=== PATIENT | male | born 1955 | race Two or more races ===

== ENCOUNTER 2019-08-07 11:10 | Inpatient (IN) | payer MEDICAID ==
[~2019-08-07] VITALS: Ht 165.1 cm; Wt 68.0 kg
--- NOTE | 2019-08-07 11:14 | NUR ---
ED Nurse Note: Pt brought in by RA 826 from home due to abd pain 5/10 and diarrhea x 1 days. Pt states there was a lot of blood in his stools. AAO x4 and ambulatory with non labored breathing.
[2019-08-07 11:18] VITALS: BP 151/93
[2019-08-07] MEDS ORDERED: Omnipaque-300 100ml vial INJ PRN (11:30)
--- NOTE | 2019-08-07 11:30 | NUR ---
ED Nurse Note: Collected blood specimen then sent.
--- NOTE | 2019-08-07 11:33 | Emergency Room Report ---
History of Present Illness General Chief Complaint: Abdominal Pain Source: Patient Present Illness HPI Patient presents with complaints of lower abdominal cramping reports that this morning he had 2 episodes of bright red blood per rectum Denies any chest pain denies any shortness of breath patient does report alcohol intake regularly Denies any dysuria frequency Denies any recent fall or trauma patient has had previous abdominal hernia surgery Denies any diarrhea or constipation Allergies: Coded Allergies: No Known Allergies (Unverified , 08/07/19) Patient History Past Medical History: see triage record Reviewed Nursing Documentation: PMH: Agreed; PSxH: Agreed Nursing Documentation-PMH Hx Diabetes: Yes Review of Systems All Other Systems: negative except mentioned in HPI Physical Exam Vital Signs Date Time Temp Pulse Resp B/P (MAP) Pulse Ox O2 Delivery O2 Flow Rate FiO2 08/07/19 11:04 98.4 70 18 130/95 (107) 100 Room Air Sp02 EP Interpretation: reviewed, normal General Appearance: well appearing, no apparent distress Head: normocephalic, atraumatic Eyes: bilateral eye PERRL, bilateral eye EOMI ENT: hearing grossly normal, normal pharynx, TMs + canals normal, uvula midline Neck: full range of motion, supple, no meningismus, no bony tend Respiratory: lungs clear, normal breath sounds, no rhonchi, no respiratory distress, no retraction, no accessory muscle use Cardiovascular #1: normal peripheral pulses, regular rate, rhythm, no edema, no gallop, no JVD, no murmur Gastrointestinal: normal bowel sounds, non tender - On palpation however patient points to bilateral lower abdomen for subjective discomfort, soft, no mass, no organomegaly, non-distended, no guarding, no hernia, no pulsatile mass , no rebound Rectal: other - Bright red blood appreciated no obvious external or visible hemorrhoids Genitourinary: no CVA tenderness Musculoskeletal: normal inspection Neurologic: oriented x3, responsive, motor bike mechanic III-XII nml as tested, motor strength/ tone normal, sensory intact Psychiatric: mood/affect normal Skin: no rash Lymphatic: normal inspection, no adenopathy Medical Decision Making Diagnostic Impression: Primary Impression: GI bleeding ER Course Given the patient's history and presentation multiple differentials and consideration including but not limited to external hemorrhoids, fissures, GI bleed Patient's white blood cell count is lower than normal Patient had another episode of large bright red blood stool Rectal exam does not show any obvious external hemorrhoids or fissures and patient will require further inpatient care GI specialty was also contacted Labs Test 08/07/19 11:30 08/07/19 17:30 08/08/19 04:45 White Blood Count 5.4 K/UL (4.8-10.8) 4.6 K/UL (4.8-10.8) 4.7 K/UL (4.8-10.8) Red Blood Count 4.24 M/UL (4.70-6.10) 3.57 M/UL (4.70-6.10) 3.17 M/UL (4.70-6.10) Hemoglobin 12.8 G/DL (14.2-18.0) 10.9 G/DL (14.2-18.0) 9.6 G/DL (14.2-18.0) Hematocrit 38.8 % (42.0-52.0) 32.7 % (42.0-52.0) 29.0 % (42.0-52.0) Mean Corpuscular Volume 92 FL (80-99) 92 FL (80-99) 91 FL (80-99) Mean Corpuscular Hemoglobin 30.3 PG (27.0-31.0) 30.6 PG (27.0-31.0) 30.4 PG (27.0-31.0) Mean Corpuscular Hemoglobin Concent 33.0 G/DL (32.0-36.0) 33.5 G/DL (32.0-36.0) 33.2 G/DL (32.0-36.0) Red Cell Distribution Width 14.6 % (11.6-14.8) 13.8 % (11.6-14.8) 14.8 % (11.6-14.8) Platelet Count 329 K/UL (150-450) 295 K/UL (150-450) 305 K/UL (150-450) Mean Platelet Volume 5.0 FL (6.5-10.1) 5.1 FL (6.5-10.1) 5.2 FL (6.5-10.1) Neutrophils (%) (Auto) 67.1 % (45.0-75.0) 68.6 % (45.0-75.0) 55.7 % (45.0-75.0) Lymphocytes (%) (Auto) 16.4 % (20.0-45.0) 15.0 % (20.0-45.0) 25.1 % (20.0-45.0) Monocytes (%) (Auto) 9.3 % (1.0-10.0) 8.6 % (1.0-10.0) 10.0 % (1.0-10.0) Eosinophils (%) (Auto) 5.8 % (0.0-3.0) 6.2 % (0.0-3.0) 7.8 % (0.0-3.0) Basophils (%) (Auto) 1.5 % (0.0-2.0) 1.6 % (0.0-2.0) 1.4 % (0.0-2.0) Urine Color Michaela Urine Appearance Clear Urine pH 6 (4.5-8.0) Urine Specific [place] 1.020 (1.005-1.035) Urine Protein 2+ (NEGATIVE) Urine Glucose (UA) Negative (NEGATIVE) Urine Ketones 1+ (NEGATIVE) Urine Blood Negative (NEGATIVE) Urine Nitrite Negative (NEGATIVE) Urine Bilirubin Negative (NEGATIVE) Urine Ictotest Negative (NEGATIVE) Urine Urobilinogen 1 MG/DL (0.0-1.0) Urine Leukocyte Esterase 1+ (NEGATIVE) Urine RBC 0 /HPF (0 - 0) Urine WBC 0-2 /HPF (0 - 0) Urine Squamous Epithelial Cells None /LPF (NONE/OCC) Urine Bacteria None /HPF (NONE) Sodium Level 138 MMOL/L (136-145) 140 MMOL/L (136-145) Potassium Level 4.1 MMOL/L (3.5-5.1) 4.2 MMOL/L (3.5-5.1) Chloride Level 105 MMOL/L (98-107) 108 MMOL/L (98-107) Carbon Dioxide Level 25 MMOL/L (21-32) 25 MMOL/L (21-32) Anion Gap 8 mmol/L (5-15) 7 mmol/L (5-15) Blood Urea Nitrogen 15 mg/dL (7-18) 10 mg/dL (7-18) Creatinine 0.8 MG/DL (0.55-1.30) 0.7 MG/DL (0.55-1.30) Estimat Glomerular Filtration Rate > 60 mL/min (>60) > 60 mL/min (>60) Glucose Level 137 MG/DL (74-106) 119 MG/DL (74-106) Calcium Level 8.8 MG/DL (8.5-10.1) 8.3 MG/DL (8.5-10.1) Total Bilirubin 0.3 MG/DL (0.2-1.0) 0.3 MG/DL (0.2-1.0) Aspartate Amino Transf (AST/SGOT) 52 U/L (15-37) 36 U/L (15-37) Alanine Aminotransferase (ALT/SGPT) 108 U/L (12-78) 88 U/L (12-78) Alkaline Phosphatase 66 U/L (46-116) 47 U/L (46-116) Total Protein 7.3 G/DL (6.4-8.2) 6.1 G/DL (6.4-8.2) Albumin 3.6 G/DL (3.4-5.0) 3.1 G/DL (3.4-5.0) Globulin 3.7 g/dL 3.0 g/dL Albumin/Globulin Ratio 1.0 (1.0-2.7) 1.0 (1.0-2.7) Lipase 192 U/L (73-393) Rhythm Strip Diag. Results EP Interpretation: yes Rate: 77 Rhythm: NSR, no PVC's, no ectopy CT/MRI/US Diagnostic Results CT/MRI/US Diagnostic Results : Impression CT abdomen pelvisIMPRESSION: 1. Diffuse colonic diverticulosis. Mild wall thickening and adjacent stranding in the sigmoid colon may suggest a low-grade diverticulitis. No adjacent free air or fluid collections. 2. Mild urinary bladder wall thickening with perivesical stranding, which may be reactive inflammation versus a cystitis. Recommend correlation with urinalysis. 3. Fat-containing umbilical and paraumbilical herniations. 4. Scattered simple-appearing renal cortical cysts, largest measuring 2. 5 cm in the left lower pole and 2.3 cm in the right lower pole. Last Vital Signs Date Time Temp Pulse Resp B/P (MAP) Pulse Ox O2 Delivery O2 Flow Rate FiO2 08/07/19 11:18 98.4 74 20 151/93 96 Room Air Status: improved Disposition: ADMITTED INPATIENT Condition: Serious Jose Raul Richter DO Aug 07, 2019 11:33
[2019-08-07 11:43] LABS: BASOPHILS % (AUTO) 1.5 % (0.0-2.0); EOSINOPHILS % (AUTO) 5.8 % (0.0-3.0); HEMATOCRIT 38.8 % (42.0-52.0); HEMOGLOBIN 12.8 G/DL (14.2-18.0); LYMPHOCYTES % (AUTO) 16.4 % (20.0-45.0); MEAN CORPUSCULAR VOLUME 92 FL (80-99); MONOCYTES % (AUTO) 9.3 % (1.0-10.0); NEUTROPHILS % (AUTO) 67.1 % (45.0-75.0); PLATELET COUNT 329 K/UL (150-450); RED BLOOD COUNT 4.24 M/UL (4.70-6.10); RED CELL DISTRIBUTION WIDTH 14.6 % (11.6-14.8); WHITE BLOOD COUNT 5.4 K/UL (4.8-10.8)
[2019-08-07 11:46] LABS: APPEARANCE,URINE CLEAR; BILIRUBIN, URINE NEGATIVE (NEGATIVE); COLOR,URINE AMBER; GLUCOSE, URINE (UA) NEGATIVE (NEGATIVE); KETONES,URINE 1+ (NEGATIVE); LEUKOCYTE ESTERASE ,URINE 1+ (NEGATIVE); NITRITE,URINE NEGATIVE (NEGATIVE); PH,URINE 6 (4.5-8.0); PROTEIN,URINE 2+ (NEGATIVE); UROBILINOGEN,URINE 1 MG/DL (0.0-1.0)
[2019-08-07 11:51] LABS: ANION GAP 8 mmol/L (5-15); BLOOD UREA NITROGEN 15 mg/dL (7-18); CALCIUM 8.8 MG/DL (8.5-10.1); CARBON DIOXIDE 25 MMOL/L (21-32); CHLORIDE 105 MMOL/L (98-107); CREATININE 0.8 MG/DL (0.55-1.30); POTASSIUM 4.1 MMOL/L (3.5-5.1); SODIUM 138 MMOL/L (136-145)
[2019-08-07 11:55] LABS: ALANINE AMINOTRANSFERASE 108 U/L (12-78); ALBUMIN 3.6 G/DL (3.4-5.0); ALKALINE PHOSPHATASE 66 U/L (46-116); ASPARTATE AMINO TRANSFERASE 52 U/L (15-37); BILIRUBIN,TOTAL 0.3 MG/DL (0.2-1.0)
[2019-08-07] MEDS ORDERED: htn med (13:14)
[2019-08-07] MEDS ORDERED: ASPIR 8181 MG ORAL (13:14)
[2019-08-07] MEDS ORDERED: METFORMIN HCL1000 M1 ORAL (13:14)
--- NOTE | 2019-08-07 13:14 | NUR ---
ED Nurse Note: per pt, " I do not know the name of hypertension med." pt does not have any family member to look for bottle of meds.
[2019-08-07 13:23] VITALS: BP 150/90
--- NOTE | 2019-08-07 13:23 | Diagnostic Imaging Report ---
EXAM: CT Abdomen and Pelvis With Intravenous Contrast CLINICAL HISTORY: PAIN TECHNIQUE: Axial computed tomography images of the abdomen and pelvis with intravenous contrast. CTDI is 16.90 mGy and DLP is 981.30 mGy-cm. One or more of the following dose reduction techniques were used: automated exposure control, adjustment of the mA and or kV according to patient size, use of iterative reconstruction technique. COMPARISON: No relevant prior studies available. FINDINGS: Lung bases: Unremarkable. No consolidation. No effusions. ABDOMEN: Liver: Unremarkable. No suspicious parenchymal lesions Gallbladder and bile ducts: Unremarkable. No calcified stones. No ductal dilation. Pancreas: Unremarkable. No mass. No ductal dilation. Spleen: Unremarkable. No splenomegaly. Adrenals: Unremarkable. No mass. Kidneys and ureters: Scattered simple-appearing renal cortical cysts, largest measuring 2.5 cm in the left lower pole and 2.3 cm in the right lower pole. The kidneys otherwise appear unremarkable. No hydronephrosis or hydroureter. Stomach and bowel: Diffuse colonic diverticulosis. Mild wall thickening and adjacent stranding in the sigmoid colon may suggest a low- grade diverticulitis. No abnormally distended loops of small bowel. GE junction and stomach appear unremarkable. PELVIS: Appendix: No findings to suggest acute appendicitis. Bladder: Mild urinary bladder wall thickening with perivesical stranding, which may be reactive inflammation versus a cystitis. Reproductive: Unremarkable as visualized. ABDOMEN and PELVIS: Intraperitoneal space: Unremarkable. No free air. No significant fluid collection. Bones joints: No acute fracture. No dislocation. Soft tissues: Fat-containing umbilical and paraumbilical herniations. Vasculature: Unremarkable. No abdominal aortic aneurysm. Lymph nodes: Unremarkable. No enlarged lymph nodes. IMPRESSION: 1. Diffuse colonic diverticulosis. Mild wall thickening and adjacent stranding in the sigmoid colon may suggest a low-grade diverticulitis. No adjacent free air or fluid collections. 2. Mild urinary bladder wall thickening with perivesical stranding, which may be reactive inflammation versus a cystitis. Recommend correlation with urinalysis. 3. Fat-containing umbilical and paraumbilical herniations. 4. Scattered simple-appearing renal cortical cysts, largest measuring 2. 5 cm in the left lower pole and 2.3 cm in the right lower pole.
--- NOTE | 2019-08-07 13:33 | NUR ---
Report given to Edilson Agustin RN. Pt to be transferred to Addendum: 08/07/19 at 1334 by [facility] ED Nurse Note: Report given to Edilson Agustin RN. Pt to be transferred to room [facility] on wheelchair per protocol.
--- NOTE | 2019-08-07 13:53 | NUR ---
NURSE NOTES: RECEIVED PATIENT A/A/OX4, YI SPEAKING. PERSONAL BELONGINGS NOTED. IV HEPLOCK PATENT AND INTACT. NO VISIBLE BLEEDING OCCUR FROM RECTUM. CALLED DR MARC/[facility] OFFICE NUMBER. AWAITS FOR A CALLBACK. BED IS IN THE LOWEST POSITION. SIDERAILS ARE UP X3. CALL LIGHT IS WITHIN REACH. WILL CONT TO MONITOR. Addendum: 08/07/19 at 1741 by RIAZ MARTIN LVN ADMISSION PROFILE RENDERED.
[2019-08-07 13:54] VITALS: BP 153/93
--- NOTE | 2019-08-07 15:44 | NUR ---
NURSE NOTES: HAD LEFT 2ND VOICEMESSAGE TO DR MARC'S OFFICE RE: ADMITTING ORDERS. AWAITING FOR CALL BACK. INFORMED JASMEET LEON. WILL CONT TO MONITOR.
[2019-08-07 16:08] VITALS: BP 127/76
--- NOTE | 2019-08-07 16:53 | NUR ---
NURSE NOTES: stated that he had 4 bm with blood. instructed not to flush next time when he moves his bm. will cont to monitor. Addendum: 08/07/19 at 1740 by RIAZ MARTIN LVN PATIENT HAD ANOTHER 2 MORE DIARRHEA, BLOOD PRESENT. DR MARC MADE AWARE.
--- NOTE | 2019-08-07 17:40 | NUR ---
NURSE NOTES: OBTAINED ADMISSION ORDERS AND CARRIED OUT.
[2019-08-07 17:53] LABS: BASOPHILS % (AUTO) 1.6 % (0.0-2.0); EOSINOPHILS % (AUTO) 6.2 % (0.0-3.0); HEMATOCRIT 32.7 % (42.0-52.0); HEMOGLOBIN 10.9 G/DL (14.2-18.0); MEAN CORPUSCULAR VOLUME 92 FL (80-99); MONOCYTES % (AUTO) 8.6 % (1.0-10.0); NEUTROPHILS % (AUTO) 68.6 % (45.0-75.0); PLATELET COUNT 295 K/UL (150-450); RED BLOOD COUNT 3.57 M/UL (4.70-6.10); RED CELL DISTRIBUTION WIDTH 13.8 % (11.6-14.8); WHITE BLOOD COUNT 4.6 K/UL (4.8-10.8)
--- NOTE | 2019-08-07 19:00 | NUR ---
NURSE NOTES: relayed cbc result to Dr. Trujillo. awaits for a callback. endorsed to YUNIEL Milton
--- NOTE | 2019-08-07 19:14 | NUR ---
HAND-OFF: Report given to Yoan Rankin
--- NOTE | 2019-08-07 19:53 | NUR ---
NURSE NOTES: Patient in bed awake and oriented. VSS. No SOB noted. IV site intact and tolerating well. No pain noted at this time. in stable condition. Call light within reach.
[2019-08-07 20:00] VITALS: BP 126/71
[2019-08-07] MEDS ORDERED: Sorbitol Solution UD 30ml ORAL SCH (20:30)
[2019-08-07] MEDS: NovoLOG Insulin Flexpen SUBQ SCH (21:13)
--- NOTE | 2019-08-07 21:15 | History and Physical Report ---
DATE OF ADMISSION: 08/07/2019 REASON FOR ADMISSION: Rectal bleeding. HISTORY OF PRESENT ILLNESS: This is a 64-year-old male. He has a distant history of gastric ulcer with bleeding over 25 years ago and has not had any recurrence since. He woke up this morning with bright red blood per rectum during a bowel movement and has had several subsequent episodes. He notes no abdominal pain. He has not had any recent change in diet. PAST MEDICAL HISTORY: Hypertension, type 2 diabetes mellitus. ALLERGIES: None. MEDICATIONS: Reviewed. SOCIAL HISTORY: Denies smoking, alcohol, or substance abuse. FAMILY HISTORY: Noncontributory. REVIEW OF SYSTEMS: A 10-point review of systems was otherwise unremarkable. PHYSICAL EXAMINATION: VITAL SIGNS: Blood pressure 150/86, pulse 78, respiratory rate 18, and afebrile. NECK: Supple. LUNGS: Clear. CARDIAC: Regular. Normal S1, S2. ABDOMEN: Soft. No tenderness, rebound, or masses. EXTREMITIES: No edema. NEUROLOGIC: Nonfocal. LABORATORY DATA: Hemoglobin was 12. Repeat hemoglobin pending. No evidence of lactic acidosis. IMPRESSION AND PLAN: Rectal bleeding. Possible etiologies include diverticulosis. Recommend liquid diet. GI consult. Serial hemoglobin. Hold anti-platelet therapy. Insulin coverage by sliding scale. IV fluid hydration. Elder Trujlilo M.D. DR: HALI JOB#: [id number] CC:
[2019-08-08] VITALS: BP 112/81
--- NOTE | 2019-08-08 02:43 | NUR ---
NURSE NOTES: Patient given sorbitol. BM x3 with. BM was bloody and liquid consistency. No abdominal pain. VSS.
[2019-08-08 04:00] VITALS: BP 129/83
[2019-08-08] MEDS: NovoLOG Insulin Flexpen SUBQ SCH ×4 (06:26→22:20)
[2019-08-08 06:30] LABS: BASOPHILS % (AUTO) 1.4 % (0.0-2.0); EOSINOPHILS % (AUTO) 7.8 % (0.0-3.0); HEMOGLOBIN 9.6 G/DL (14.2-18.0); LYMPHOCYTES % (AUTO) 25.1 % (20.0-45.0); MEAN CORPUSCULAR VOLUME 91 FL (80-99); NEUTROPHILS % (AUTO) 55.7 % (45.0-75.0); PLATELET COUNT 305 K/UL (150-450); RED BLOOD COUNT 3.17 M/UL (4.70-6.10); RED CELL DISTRIBUTION WIDTH 14.8 % (11.6-14.8); WHITE BLOOD COUNT 4.7 K/UL (4.8-10.8)
[2019-08-08 06:44] LABS: ALANINE AMINOTRANSFERASE 88 U/L (12-78); ALBUMIN 3.1 G/DL (3.4-5.0); ALKALINE PHOSPHATASE 47 U/L (46-116); ANION GAP 7 mmol/L (5-15); ASPARTATE AMINO TRANSFERASE 36 U/L (15-37); BILIRUBIN,TOTAL 0.3 MG/DL (0.2-1.0); BLOOD UREA NITROGEN 10 mg/dL (7-18); CALCIUM 8.3 MG/DL (8.5-10.1); CARBON DIOXIDE 25 MMOL/L (21-32); CHLORIDE 108 MMOL/L (98-107); CREATININE 0.7 MG/DL (0.55-1.30); POTASSIUM 4.2 MMOL/L (3.5-5.1); SODIUM 140 MMOL/L (136-145)
--- NOTE | 2019-08-08 07:30 | NUR ---
NURSE NOTES: RECEIVED PATIENT A/A/OX4, CENTRAL AFRICAN SPEAKING. AMBULATES WITH NO ACUTE DISTRESS OR DISCOMFORT NOTED. IV ACCESS PATENT AND INTACT. NO BM OF THIS TIME. TOLERATING BREAKFAST WELL. BED IS IN THE LOWEST POSITION. SIDERAILS ARE UP X3. CALL LIGHT IS WITHIN REACH. WILL CONT TO MONITOR.
[2019-08-08 08:00] VITALS: BP 117/70
--- NOTE | 2019-08-08 09:24 | NUR ---
CASE MANAGEMENT: INITIAL REVIEW 64 YO M PRESENTED TO OUR ED FROM HOME CC: ABD PAIN. BRIGHT RED BLOOD PER RECTUM X2 PMHx: HTN SI:GI BLEED T 98.4 HR 70 RR 18 B/P 130/95 SATS 100% ON RA WBC 4.6 GLU 137 AST 52 ALT 108 IS: NS BOLUS X1 CT ABD/PELVIS Diffuse colonic diverticulosis. PATIENT ADMITTED TO MED/SURG 08/07/2019 @ 1409 DCP: PATIENT TO BE DISCHARGED TO HOME ONCE MEDICALLY CLEARED. PLAN OF CARE: GI CONSULT 08/08/2019 SI:GI BLEED T 98 HR 71 RR 18 B/P 117/70 SATS 97% ON RA WBC 4.7 CL 108 GLU 119 ALT 88 IS: IVF @ 100 mL/HR INSULIN ASPART SUBQ AC/HS MED/SURG DCP: PATIENT TO BE DISCHARGED TO HOME ONCE MEDICALLY CLEARED. PLAN OF CARE: GI CONSULT >> PENDING Addendum: 08/08/19 at 1228 by Charlene Wheatley CM INTERQUAL MET
--- NOTE | 2019-08-08 10:00 | General Progress Note ---
Assessment/Plan Assessment/Plan: GI CONSULT Dictated Likely diverticular bleed But also takes nightly Advil Will schedule for EGD/Colon in am Thank you Kenyatta Matos MD Subjective Allergies: Coded Allergies: No Known Allergies (Unverified , 08/07/19) Objective Last 24 Hour Vital Signs Date Time Temp Pulse Resp B/P (MAP) Pulse Ox O2 Delivery O2 Flow Rate FiO2 08/08/19 08:00 98.0 71 18 117/70 (86) 97 08/08/19 04:00 99.0 78 18 129/83 (98) 98 08/08/19 00:00 98.4 64 19 112/81 (91) 99 08/07/19 21:00 Room Air 08/07/19 20:00 98.5 72 18 126/71 (89) 98 08/07/19 16:08 98.6 69 16 127/76 (93) 99 69 08/07/19 13:54 96.7 75 18 153/93 (113) 99 75 08/07/19 13:54 Room Air 08/07/19 13:40 98.4 74 19 150/90 98 Room Air 71 08/07/19 13:23 98.4 71 19 150/90 98 Room Air 08/07/19 11:18 98.4 74 20 151/93 96 Room Air 08/07/19 11:15 74 20 Room Air 08/07/19 11:04 98.4 70 18 130/95 (107) 100 Room Air Intake and Output 08/07/19 08/08/19 19:00 07:00 Intake Total 1560 ml 1700 ml Balance 1560 ml 1700 ml Intake Oral 360 ml 600 ml IV Total 1200 ml 1100 ml # Voids 5 # Bowel Movements 6 9 Laboratory Tests 08/07/19 11:30: White Blood Count 5.4, Red Blood Count 4.24L, Hemoglobin 12.8L, Hematocrit 38.8L , Mean Corpuscular Volume 92, Mean Corpuscular Hemoglobin 30.3, Mean Corpuscular Hemoglobin Concent 33.0, Red Cell Distribution Width 14.6, Platelet Count 329, Mean Platelet Volume 5.0L, Neutrophils (%) (Auto) 67.1, Lymphocytes ( %) (Auto) 16.4L, Monocytes (%) (Auto) 9.3, Eosinophils (%) (Auto) 5.8H, Basophils (%) (Auto) 1.5, Urine Color Michaela, Urine Appearance Clear, Urine pH 6 , Urine Specific [place] 1.020, Urine Protein 2+H, Urine Glucose (UA) Negative, Urine Ketones 1+H, Urine Blood Negative, Urine Nitrite Negative, Urine Bilirubin Negative, Urine Ictotest Negative, Urine Urobilinogen 1H, Urine Leukocyte Esterase 1+H, Urine RBC 0, Urine WBC 0-2, Urine Squamous Epithelial Cells None, Urine Bacteria None, Sodium Level 138, Potassium Level 4.1, Chloride Level 105, Carbon Dioxide Level 25, Anion Gap 8, Blood Urea Nitrogen 15 , Creatinine 0.8, Estimat Glomerular Filtration Rate > 60, Glucose Level 137H, Calcium Level 8.8, Total Bilirubin 0.3, Aspartate Amino Transf (AST/SGOT) 52H, Alanine Aminotransferase (ALT/SGPT) 108H, Alkaline Phosphatase 66, Total Protein 7.3, Albumin 3.6, Globulin 3.7, Albumin/Globulin Ratio 1.0, Lipase 192 08/07/19 17:30: White Blood Count 4.6L, Red Blood Count 3.57L, Hemoglobin 10.9L, Hematocrit 32.7L, Mean Corpuscular Volume 92, Mean Corpuscular Hemoglobin 30.6, Mean Corpuscular Hemoglobin Concent 33.5, Red Cell Distribution Width 13.8, Platelet Count 295, Mean Platelet Volume 5.1L, Neutrophils (%) (Auto) 68.6, Lymphocytes ( %) (Auto) 15.0L, Monocytes (%) (Auto) 8.6, Eosinophils (%) (Auto) 6.2H, Basophils (%) (Auto) 1.6 08/08/19 04:45: White Blood Count 4.7L, Red Blood Count 3.17L, Hemoglobin 9.6L, Hematocrit 29.0L , Mean Corpuscular Volume 91, Mean Corpuscular Hemoglobin 30.4, Mean Corpuscular Hemoglobin Concent 33.2, Red Cell Distribution Width 14.8, Platelet Count 305, Mean Platelet Volume 5.2L, Neutrophils (%) (Auto) 55.7, Lymphocytes ( %) (Auto) 25.1, Monocytes (%) (Auto) 10.0, Eosinophils (%) (Auto) 7.8H, Basophils (%) (Auto) 1.4, Sodium Level 140, Potassium Level 4.2, Chloride Level 108H, Carbon Dioxide Level 25, Anion Gap 7, Blood Urea Nitrogen 10, Creatinine 0.7, Estimat Glomerular Filtration Rate > 60, Glucose Level 119H, Calcium Level 8.3L, Total Bilirubin 0.3, Aspartate Amino Transf (AST/SGOT) 36, Alanine Aminotransferase (ALT/SGPT) 88H, Alkaline Phosphatase 47, Total Protein 6.1L, Albumin 3.1L, Globulin 3.0, Albumin/Globulin Ratio 1.0 Height (Feet): 5 Height (Inches): 1.00 Weight (Pounds): 150 Kenyatta Matos MD Aug 08, 2019 10:00
--- NOTE | 2019-08-08 10:21 | NUR ---
CHARGE NURSE NOTE: Spoke with for his order clarification. "Endoscopy with colonoscopy and possible biopsy". He did not want to get 2 separate consents. He wants to carry the order how it is written.
[2019-08-08] MEDS ORDERED: Nulytely 4L ORAL SCH (11:00)
[2019-08-08 11:42] VITALS: BP 135/86
--- NOTE | 2019-08-08 15:45 | Consultation ---
DATE OF CONSULTATION: 08/08/2019 GASTROENTEROLOGY CONSULTATION CONSULTING PHYSICIAN: Kenyatta Matos M.D. CHIEF COMPLAINT: I was asked to see this patient by Dr. Elder Trujillo for evaluation of gastrointestinal bleeding. HISTORY OF PRESENT ILLNESS: The patient is a pleasant 64-year-old man, who was brought into the hospital due to profuse bleeding rectally over the day prior to admission. He says he has had a history of ulcer disease in past, 25 years ago and also had a colonoscopy about 4 years ago where he was told he had hemorrhoids. The CT scan done in the emergency room also showed diffuse diverticulosis. The patient denies any abdominal pain. He does take Advil on a nightly basis. PAST MEDICAL HISTORY: History of hypertension, type 2 diabetes. ALLERGIES: None. FAMILY HISTORY: Noncontributory. SOCIAL HISTORY: The patient does not drink alcohol or smoke. He is single and has no children. REVIEW OF SYSTEMS: Otherwise negative. MEDICATIONS: See the chart list for details. PHYSICAL EXAMINATION: GENERAL: Pleasant man, seen in his room. HEENT: Normocephalic, atraumatic. Sclerae anicteric. Oropharynx clear. NECK: Supple. CHEST: Clear to auscultation. CARDIOVASCULAR: Revealed a regular rate. ABDOMEN: Soft, nontender including the left lower quadrant without guarding or rebound. EXTREMITIES: Revealed no edema. Laboratory data CT scan were noted. ASSESSMENT: This patient presents with hematochezia and a drop in hematocrit, which is likely due to lower GI bleeding, which in this case is preserved to be diverticular in nature. However, the patient also has a history of ulcer disease and takes Advil nightly and therefore component of upper GI bleeding may have to also be ruled out. I will therefore schedule the patient for both an endoscopy and colonoscopy tomorrow to evaluate upper and lower GI tract. The indications and risks were explained to the patient and informed consent was obtained. RECOMMENDATIONS: 1. Keep the patient on clear liquids. 2. Serial CBC. 3. GoLYTELY. 4. Proton pump inhibitor. 5. Endoscopy and colonoscopy tomorrow. Thank you for asking me to participate in the care of this patient. Kenyatta Matos M.D. DR: JUDD JOB#: [id number] CC: LUIS
[2019-08-08 16:00] VITALS: BP 126/82
--- NOTE | 2019-08-08 18:49 | NUR ---
NURSE NOTES: obtained consent for EGD/colonoscopy in am. able to consume the nulytely. instructed patient after mn NPO. IVF infusing well. no acute resp distress noted. will cont to monitor.
--- NOTE | 2019-08-08 19:12 | NUR ---
HAND-OFF: Report given to
--- NOTE | 2019-08-08 19:15 | NUR ---
NURSE NOTES: Report taken JANAK Quezada. Patient is awake and in bed, Ukrainian speaking only. A&Ox4. No signs of distress on room air. No complaints of pain. IV site c/d/i and patent, running NS at 100mls/hr. Patient to undergo procedures tomorrow, consent signed, instructed patient on NPO.Bed in lowest position, call light within reach.
[2019-08-08 20:00] VITALS: BP 125/81
--- NOTE | 2019-08-08 20:15 | Progress Note ---
DATE: 08/08/2019 CARDIAC INTERNAL MEDICINE PROGRESS NOTE SUBJECTIVE: The patient with less frequent episodes of bright red blood per rectum, but they have not remitted. No dizziness, chest pain, nausea, or vomiting. No abdominal pain. OBJECTIVE: VITAL SIGNS: Blood pressure 117/70, pulse 71, respiratory rate 18, and afebrile. LUNGS: Clear. CARDIAC: Regular. ABDOMEN: Soft and nontender. EXTREMITIES: There is no edema. LABORATORY DATA: Chemistry panel notable for albumin of 3.1. Hemoglobin has dropped from 12.8 on admission to 9.6 today. IMPRESSION: Gastrointestinal bleeding, probably diverticular. PLAN: Continue bowel regimen, clear liquids. No anti-platelet therapies. GI consultation noted for panendoscopy. Continue serial hemoglobin and transfuse if drops below 8 grams/deciliter. Elder Trujillo M.D. DR: Nicholas JOB#: [id number] CC:
[2019-08-09] VITALS (11 sets, daily range): BP systolic 107–147; BP diastolic 69–89
[2019-08-09] MEDS: NovoLOG Insulin Flexpen SUBQ SCH ×3 (05:58→16:30)
[2019-08-09 06:08] LABS: BASOPHILS % (AUTO) 2.4 % (0.0-2.0); EOSINOPHILS % (AUTO) 10.4 % (0.0-3.0); HEMATOCRIT 27.1 % (42.0-52.0); LYMPHOCYTES % (AUTO) 25.3 % (20.0-45.0); MEAN CORPUSCULAR VOLUME 91 FL (80-99); MONOCYTES % (AUTO) 11.9 % (1.0-10.0); PLATELET COUNT 347 K/UL (150-450); RED BLOOD COUNT 2.98 M/UL (4.70-6.10); RED CELL DISTRIBUTION WIDTH 14.8 % (11.6-14.8); WHITE BLOOD COUNT 3.5 K/UL (4.8-10.8)
[2019-08-09] MEDS ORDERED: Midazolam 2mg/2ml Inj IVP PRN (07:00)
[2019-08-09] MEDS ORDERED: DiphenhydrAMINE 50mg/ml Inj IVP PRN (07:00)
[2019-08-09] MEDS ORDERED: fentaNYL 100 mcg/2 mL IV PRN (07:00)
[2019-08-09] MEDS ORDERED: Atropine Inj 1mg/10ml Syr IV PRN (07:00)
--- NOTE | 2019-08-09 07:03 | Anethesia Preoperative Eval ---
Anesthesia Pre-op PMH/ROS General Date of Evaluation: Aug 09, 2019 Time of Evaluation: 07:02 Anesthesiologist: kendal ASA Score: ASA 3 Mallampati Score Class I : Soft palate, uvula, fauces, pillars visible Class II: Soft palate, uvula, fauces visible Class III: Soft palate, base of uvula visible Class IV: Only hard plate visible Mallampati Classification: Class II Surgeon: meseret Diagnosis: gi bleed Surgical Procedure: egd/colonoscopy Anesthesia History: none Social History: smoking - nonsmoker Family History: no anesthesia problems Allergies: Coded Allergies: No Known Allergies (Unverified , 08/07/19) Medications: see eMAR Patient NPO?: Yes Past Medical History Cardiovascular: Reports: HTN Endocrine: Reports: DM Anesthesia Pre-op Phys. Exam Physician Exam Last Vital Signs Date Time Temp Pulse Resp B/P (MAP) Pulse Ox O2 Delivery O2 Flow Rate FiO2 08/09/19 04:00 98.1 62 17 124/75 (91) 99 08/08/19 21:00 Room Air Constitutional: NAD Neurologic: CN 2-12 intact Cardiovascular: RRR Respiratory: CTA Gastrointestinal: S/NT/ND Airway Exam Mallampati Score: Class II MO: limited Neck: flexible TMD: 2fb ROM: limited Anesthesia Pre-op A/P Labs Hematology Test 08/09/19 05:10 White Blood Count 3.5 K/UL (4.8-10.8) L Red Blood Count 2.98 M/UL (4.70-6.10) L Hemoglobin 9.0 G/DL (14.2-18.0) L Hematocrit 27.1 % (42.0-52.0) L Mean Corpuscular Volume 91 FL (80-99) Mean Corpuscular Hemoglobin 30.2 PG (27.0-31.0) Mean Corpuscular Hemoglobin Concent 33.2 G/DL (32.0-36.0) Red Cell Distribution Width 14.8 % (11.6-14.8) Platelet Count 347 K/UL (150-450) Mean Platelet Volume 4.8 FL (6.5-10.1) L Neutrophils (%) (Auto) 50.0 % (45.0-75.0) Lymphocytes (%) (Auto) 25.3 % (20.0-45.0) Monocytes (%) (Auto) 11.9 % (1.0-10.0) H Eosinophils (%) (Auto) 10.4 % (0.0-3.0) H Basophils (%) (Auto) 2.4 % (0.0-2.0) H Coagulation Test 08/09/19 05:10 Prothrombin Time 10.5 SEC (9.30-11.50) Prothromb Time International Ratio 1.0 (0.9-1.1) Activated Partial Thromboplast Time 21 SEC (23-33) L Risk Assessment & Plan Assessment: asa3 Plan: mac Status Change Before Surgery: No Pre-Antibiotics Drug: na Carolyn Arthur MD Aug 09, 2019 07:03
--- NOTE | 2019-08-09 07:30 | NUR ---
NURSE NOTES: Pt lying in bed w/bed in lowest position and call light within reach. Pt A&Ox4, VSS, and in no apparent distress at this time. IV site intact/asymptomatic w/IVF running and skin intact. Pt has been NPO since midnight in preparation for EGD this morning. Will continue to monitor.
--- NOTE | 2019-08-09 07:44 | NUR ---
HAND-OFF: Report given to YUNIEL Bolanos. Consent for procedure signed by patient.
[2019-08-09] MEDS ORDERED: Propofol 200mg/20ml IV ONE (09:00)
[2019-08-09] MEDS ORDERED: Lidocaine 1% MPF 10mg/ml 5ml ONE (09:00)
[2019-08-09] MEDS ORDERED: NS 500ML IVPB ONE ×2 (09:14→09:48)
--- NOTE | 2019-08-09 09:16 | General Progress Note ---
Assessment/Plan Assessment/Plan: Assessment - GIB - Diverticulosis - No clinical e/o diverticulitis - Anemia - h/o PUD Recommendations - NPO - EGD/Colon today Subjective Allergies: Coded Allergies: No Known Allergies (Unverified , 08/07/19) Subjective No further GIB with prep Objective Last 24 Hour Vital Signs Date Time Temp Pulse Resp B/P (MAP) Pulse Ox O2 Delivery O2 Flow Rate FiO2 08/09/19 08:00 97.8 61 18 147/89 (108) 99 08/09/19 04:00 98.1 62 17 124/75 (91) 99 08/09/19 00:00 98.7 61 17 121/75 (90) 99 08/08/19 21:00 Room Air 08/08/19 20:00 98.0 59 18 125/81 (96) 98 08/08/19 16:00 98.6 74 18 126/82 (97) 97 08/08/19 11:42 97.7 63 18 135/86 (102) 99 Intake and Output 08/08/19 08/09/19 19:00 07:00 Intake Total 5420 ml 200 ml Balance 5420 ml 200 ml Intake Oral 4720 ml 200 ml IV Total 700 ml # Voids 1 # Bowel Movements 17 Laboratory Tests 08/09/19 05:10: White Blood Count 3.5L, Red Blood Count 2.98L, Hemoglobin 9.0L, Hematocrit 27.1L , Mean Corpuscular Volume 91, Mean Corpuscular Hemoglobin 30.2, Mean Corpuscular Hemoglobin Concent 33.2, Red Cell Distribution Width 14.8, Platelet Count 347, Mean Platelet Volume 4.8L, Neutrophils (%) (Auto) 50.0, Lymphocytes ( %) (Auto) 25.3, Monocytes (%) (Auto) 11.9H, Eosinophils (%) (Auto) 10.4H, Basophils (%) (Auto) 2.4H, Prothrombin Time 10.5, Prothromb Time International Ratio 1.0, Activated Partial Thromboplast Time 21L Height (Feet): 5 Height (Inches): 5.00 Weight (Pounds): 150 Objective WDWN NCAT Supple CTA RR abd soft, NT No edema Kenyatta Matos MD Aug 09, 2019 09:16
--- NOTE | 2019-08-09 09:17 | Pre-Procedure Note/Attestation ---
Pre-Procedure Note/Attestation Complete Prior to Procedure Planned Procedure: not applicable Procedure Narrative: EGD / Colon Indications for Procedure Pre-Operative Diagnosis: GIB Attestation I attest that I discussed the nature of the procedure; its benefits; risks and complications; and alternatives (and the risks and benefits of such alternatives ), prior to the procedure, with the patient (or the patient's legal dental detail representative). I attest that, if there was a reasonable possibility of needing a blood transfusion, the patient (or the patient's legal dental detail representative) was given the [facility] standardized written summary, pursuant to the [place] Blood Safety Act ([place] Health and Safety Code # 1645, as amended). I attest that I re-evaluated the patient just prior to the surgery and that there has been no change in the patient's H&P, except as documented below: Kenyatta Matos MD Aug 09, 2019 09:17
--- NOTE | 2019-08-09 09:58 | Endoscopy Procedure Note ---
Endoscopy Procedure Note General Indication for Procedure: GIB Procedures Performed: EGD, colonoscopy Operative Findings/Diagnosis: fundus erosion, diverticulosis, polyps Specimen: yes Pt Tolerated Procedure Well: Yes Estimated Blood Loss: none Anesthesia Anesthesiologist: Tomy Venegas Anesthesia: MAC Medications Medication Given: see anesthesia record Inserted Devices Implant(s) used?: No GI Core Measures 50 yrs or older w/o bx or poly: Not Applicable 10yrs. F/U recommended: Not Applicable If not recommended, why?: Kenyatta Matos MD Aug 09, 2019 09:58
--- NOTE | 2019-08-09 09:59 | Brief Operative Note ---
Immediate Post Operative Note Operative Note Chief Complaint: GIB Pre-op Diagnosis: GIB Procedure: EGD / Colon Post-op Diagnosis: prox gastritis, L sided tics, multiple polyps Specimen: yes Complications: none Condition: stable Fluids: recorded Estimated Blood Loss: none Implant(s) used?: No Kenyatta Matos MD Aug 09, 2019 09:59
--- NOTE | 2019-08-09 10:33 | Immediate Post-Op Evaluation ---
Immediate Post-Op Evalulation Immediate Post-Op Evalulation Procedure: egd/colonoscopy w/bx Date of Evaluation: Aug 09, 2019 Time of Evaluation: 10:15 IV Fluids: 550ml 0.9ns Blood Products: none Estimated Blood Loss: negligible Blood Pressure Systolic: 107 Blood Pressure Diastolic: 72 Pulse Rate: 62 Respiratory Rate: 18 O2 Sat by Pulse Oximetry: 100 Temperature (Fahrenheit): 97.5 Pain Score (1-10): 0 Nausea: No Vomiting: No Complications none Patient Status: awake, reacts, patent Hydration Status: adequate Drug: Carolyn Isaac MD Aug 09, 2019 10:33
--- NOTE | 2019-08-09 10:35 | 48 Hour Post Anesthesia Eval ---
Post Anesthesia Evaluation Procedure: egd/colonoscopy w/bx Date of Evaluation: Aug 09, 2019 Time of Evaluation: 10:17 Blood Pressure Systolic: 121 0: 75 Pulse Rate: 57 Respiratory Rate: 18 Temperature (Fahrenheit): 97.5 O2 Sat by Pulse Oximetry: 100 Airway: patent Nausea: No Vomiting: No Pain Intensity: 0 Hydration Status: adequate Cardiopulmonary Status: stable Mental Status/LOC: patient returned to baseline Post-Anesthesia Complications: none Follow-up care needed: N/A Carolyn Arthur MD Aug 09, 2019 10:35
--- NOTE | 2019-08-09 11:40 | Endoscopy Procedure Note ---
Endoscopy Procedure Note General Indication for Procedure: GIB Procedures Performed: EGD, colonoscopy Operative Findings/Diagnosis: mild gastric erosions, multiple polyps, severe tics Specimen: yes Pt Tolerated Procedure Well: Yes Estimated Blood Loss: none Anesthesia Anesthesiologist: Tomy Venegas Anesthesia: MAC Medications Medication Given: see anesthesia record Inserted Devices Implant(s) used?: No GI Core Measures 50 yrs or older w/o bx or poly: Not Applicable 10yrs. F/U recommended: Not Applicable If not recommended, why?: Kenyatta Matos MD Aug 09, 2019 11:40
--- NOTE | 2019-08-09 11:41 | Brief Operative Note ---
Immediate Post Operative Note Operative Note Chief Complaint: gib Pre-op Diagnosis: GIB Procedure: EGD / Colon Post-op Diagnosis: prox gastritis, L sided tics, multiple polyps Surgeon: meseret Anesthesiologist: lamonte romero Anesthesia: MAC, moderate sedation Specimen: yes Complications: none Condition: stable Fluids: give Estimated Blood Loss: none Drains: none Packing: yes Implant(s) used?: No Kenyatta Matos MD Aug 09, 2019 11:41
--- NOTE | 2019-08-09 12:56 | NUR ---
Home Management SupervisorResearch Technologist SI: GI Bleed Hgb:9.0 BP: 122/69 HR:67 T:98.1 02 Sat:98% on RA RR:20 10/7 S/P EGD & Colonoscopy: Mild Gastritis, Multiple Polyps, & Severe Tics IS: IVF Protonix PO M/S Status DCP: Home once medically cleared
--- NOTE | 2019-08-09 15:46 | CDS Physician Query ---
Clarification is required for compliance, coding accuracy, and to reflect severity of illness for this patient Dear Dr. Kenyatta Matos Date: 08/09/2019 Solar Electric/Photovoltaic Installer/ CDS Name: Jennifer Santana Clinical Documentation states: 08/09 note - Assessment - GIB - Diverticulosis - No clinical e/o diverticulitis - Anemia - h/o PUD Please clarify the specific type of anemia below: Acuity []Acute []Acute on Chronic []Chronic Etiology [] Blood loss [] ESRD [] Neoplastic disease [] Iron deficiency [] GI Bleeding [] Anemia of chronic disease [] Dilutional [] Postoperative [] Unable to determine [] Other: Present on Admission: [] Yes [] No [] Clinically Undetermined Physician signature Date Please also document in your Progress Notes and/or Discharge Summary and indicate if the condition was present on admission. MTDD
--- NOTE | 2019-08-09 19:39 | NUR ---
HAND-OFF: Report given to YUNIEL Hussein.
--- NOTE | 2019-08-09 19:40 | NUR ---
NURSE NOTES: Received report from YUNIEL Bolanos. Patient alert, oriented x4. Denies any pain, nausea or vomiting, tolerated dinner well. Had BM this evening without difficulty, per patient report. IV infusing well in LH. Dr Trujillo here to see patient, planning to discharge this evening.
--- NOTE | 2019-08-09 20:00 | NUR ---
NURSE NOTES: Patient provided with discharge instructions on diverticulosis to read while waiting for ride and rest of paperwork. Patient states he has his glasses at home but is able to read them slowly. Provided verbal instructions to call PMD as needed for increased pain, bleeding, high blood pressure, chest pain. Instructed to follow up with PMD per Dr Trujillo's instructions. Patient states understanding of instructions.
--- NOTE | 2019-08-09 20:15 | NUR ---
NURSE NOTES: IV discontinued, placed pressure dressing, instructed to keep dressing on.
--- NOTE | 2019-08-09 20:35 | NUR ---
NURSE NOTES: Discharged to home via private car. Ambulated accompanied by nurse to exit. No distress noted. Addendum: 08/09/19 at 2058 by Carlyn Lancaster RN Discharge teaching done and signed
--- NOTE | 2019-08-11 09:48 | Discharge Summary ---
Discharge Summary Discharge Summary _ DATE OF ADMISSION: 08/07/2019 DATE OF DISCHARGE: 08/09/2019 DISCHARGED BY: REASON FOR ADMISSION: 64 years old male with past medical history of hypertension, diabetes mellitus, distant history of gastric ulcer with bleeding over 25 years ago , no recurrence since that, woke up in the morning with bright red blood per rectum during bowel movement with few subsequent episodes. He reported no abdominal pain. No recent change in diet. Patient subsequently came to emergency room for further evaluation and management. Vital signs were stable. Laboratory work-up revealed no leukocytosis , hemoglobin 12.8 , hematocrit 38.8 ; repeated hemoglobin in 6 hours showed significant drop from 12.8 down to 10.9 and hematocrit from 28.8 down to 32.7. Platelet count stable . Urinalysis revealed +2 protein, +1 ketones, no evidence of UTI. Stable electrolytes and renal parameters. Glucose 137. AST 52 , ALT 108 , lipase 192 . EKG revealed sinus rhythm, no acute ischemic changes. CT of the abdomen and pelvis demonstrated ; -Diffuse colonic diverticulosis. Mild wall thickening and adjacent stranding in the sigmoid colon may suggest a low-grade diverticulitis. No adjacent free air or fluid collections. -Mild urinary bladder wall thickening with perivesical stranding, which may be reactive inflammation versus a cystitis. -Fat-containing umbilical and paraumbilical herniations. - Scattered simple-appearing renal cortical cysts, largest measuring 2.5 cm in the left lower pole and 2.3 cm in the right lower pole. Patient was admitted for further management. CONSULTANTS: GI specialist Dr. Cheatham [facility] COURSE: Patient admitted and started on the IV fluids and IV Protonix. Serial hemoglobin was monitored. Antiplatelet therapy was on hold. Blood sugar was managed with sliding scale of insulin. GI specialist seen and evaluated patient. Patient was kept on clear liquid diet. Patient subsequently undergone on 08/09 endoscopy and colonoscopy, which revealed proximal gastritis, left-sided tics, multiply polyps, diverticulosis. No clinical evidence of diverticulitis. At the time of this dictation, the biopsy results still pending. Hemoglobin and hematocrit were closely monitored with goal to keep hemoglobin above 7 . Prior to discharge hemoglobin 9, hematocrit 27.1. No further bleeding. Renal parameters and electrolytes were closely monitored. LFT trended : prior to discharge AST from 52 down to 36 ,ALT from 108 down to 88. Diet was advanced as tolerated . Symptomatic care provided. Antiemetic were on board as needed. Patient was able to tolerate diet. No further GI bleeding. Patient clinically stabilized and was ready for discharge. FINAL DIAGNOSES: GI bleeding, probably diverticular Diverticulosis without clinical evidence of diverticulitis Anemia due to acute blood loss History of peptic ulcer disease Status post EGD and colonoscopy: proximal gastritis, left sided tics, multiply polyps, diverticulosis. DISCHARGE MEDICATIONS: See Medication Reconciliation list. DISCHARGE INSTRUCTIONS: Patient was discharged home . Follow up with primary care provider in one week. I have been assigned to dictate discharge summary for this account. I was not involved in the patient's management. Raquel Jack NP Aug 11, 2019 09:48
--- NOTE | 2019-08-19 22:45 | Operative Note - Dictated ---
DATE OF OPERATION: 08/09/2019 GASTROENTEROLOGY PROCEDURE REPORT PROCEDURE: Upper gastrointestinal endoscopy with biopsy and colonoscopy with biopsy. SURGEON: Kenyatta Matos M.D. ANESTHESIA: Please see the separate anesthesiologist notes for details. PRE-ENDOSCOPIC DIAGNOSIS: Gastrointestinal bleeding. POST-ENDOSCOPIC DIAGNOSES: 1. Mild gastric erosions. 2. Multiple colonic polyps. 3. Severe diverticulosis. DESCRIPTION OF PROCEDURE: The procedure, its risks, indications, alternatives, and possible complications were explained and informed consent was obtained. The diagnostic upper endoscope was introduced through the oropharynx and advanced to the duodenum. The endoscope was then gradually withdrawn and the mucosa examined carefully. Biopsies of the antrum and fundus were submitted to pathology for review. The endoscope was removed. The rectal exam was done. The colonoscope was introduced in the rectum and advanced to the cecum without difficulty. The cecum was identified by the appearance of the ileocecal valve. The colonoscope was then gradually withdrawn and the mucosa examined carefully. Examination of the colonic mucosa revealed transverse colon polyps x2 and splenic flexure polyp x1, which were removed. Descending polyps x2 were also seen and removed. The mid descending colon polyp that was removed. Also sigmoid colon polyp was removed. Specimens were also submitted to pathology for review. The colonoscope was removed. The patient was sent to recovery in good condition. COMPLICATIONS: None. RECOMMENDATIONS: 1. Follow up biopsy results. 2. Resume diet. 3. Monitor labs. Kenyatta Matos M.D. DR: JUDD JOB#: [id number] CC:
== END 2019-08-09 20:35 | disposition home or self-care (01) | DRG 244 ==
LOC: EDBD 11:10 → EMR 12:34 → EDBEDREQ 13:35 → 3E 14:09
PROC: 0DBM8ZZ Excision of Descending Colon, Via Natural or Artificial Opening Endoscopic (ICD-10-PCS; 2019-08-09)
PROC: 0DBN8ZZ Excision of Sigmoid Colon, Via Natural or Artificial Opening Endoscopic (ICD-10-PCS; 2019-08-09)
PROC: 0DB68ZX Excision of Stomach, Via Natural or Artificial Opening Endoscopic, Diagnostic (ICD-10-PCS; principal; 2019-08-09 09:20)
PROC: 0DB78ZX Excision of Stomach, Pylorus, Via Natural or Artificial Opening Endoscopic, Diagnostic (ICD-10-PCS; 2019-08-09 09:20)
DX: K57.91 Diverticulosis of intestine, part unspecified, without perforation or abscess with bleeding (principal); I10 Essential (primary) hypertension; E11.9 Type 2 diabetes mellitus without complications; D62 Acute posthemorrhagic anemia; K29.70 Gastritis, unspecified, without bleeding
CPT/HCPCS: 36415; 74177; 80053; 81003; 82962; 83690; 85025; 85610; 85730; 94003; 94150; 99285; J1815